=== PATIENT | female | born 1985 | race Caucasian/White ===

== ENCOUNTER 2017-01-22 04:29 | Emergency (ER) | payer SELFPAY ==
[2017-01-22 05:24] LABS: HEMOGLOBIN 14.2 gm/dl (12.3-15.3); RED BLOOD COUNT 4.65 M/UL (4.00-5.10); WHITE BLOOD COUNT 6.5 K/UL (4.5-11.0)
[2017-01-22 05:36] LABS: BUN/CREATININE RATIO 10 (0-10)
== END 2017-01-22 06:40 | disposition home or self-care (01) ==
LOC: ER1 04:29
PROVIDERS: Specialist/Technologist Athletic Trainer
DX: J10.1 Influenza due to other identified influenza virus with other respiratory manifestations (principal)
CPT/HCPCS: 36415; 80053; 81001; 83605; 84703; 85025; 87040; 87081; 87086; 87880; 96360; 99283

== ENCOUNTER 2017-01-28 11:41 | Emergency (ER) | payer SELFPAY ==
[2017-01-28 13:50] LABS: HEMOGLOBIN 12.3 gm/dl (12.3-15.3); RED BLOOD COUNT 4.1 M/UL (4.00-5.10); WHITE BLOOD COUNT 9.5 K/UL (4.5-11.0)
[2017-01-28 14:07] LABS: BUN/CREATININE RATIO 23 (0-10)
== END 2017-01-28 16:15 | disposition home or self-care (01) ==
LOC: ER1 11:41
PROVIDERS: Specialist/Technologist Athletic Trainer
DX: J32.4 Chronic pansinusitis (principal)
CPT/HCPCS: 36415; 70450; 70486; 80053; 85025; 96361; 96374; 96375; 99283; J1200; J1885; J2765